=== PATIENT | female | born 2000 | race African-American/Black ===

== ENCOUNTER 2020-04-27 02:20 | Inpatient (IN) | payer OTHER ==
[~2020-04-27] VITALS: Ht 167.6 cm; Wt 110.0 kg
[2020-04-27 03:06] LABS: Urine Bacteria FEW /hpf (None Seen); Urine Blood 2+ /uL (Negative); Urine Specific Gravity 1.011 (1.001-1.035); Urine WBC 8 /hpf (0 - 5)
[2020-04-27 03:41] LABS: Basophils # (auto) 0 10 ^3/uL (0-0.2); Basophils % (auto) 0.3 % (0.0-2.0); Eosinophils # (auto) 0 10 ^3/uL (0-0.8); Eosinophils % (auto) 0.1 % (0.0-7.0); Hematocrit 40.6 % (36.0-46.0); Hemoglobin 12.3 g/dL (12.2-16.2); Lymphocytes # (auto) 0.7 10 ^3/uL (0.4-5.4); Lymphocytes % (auto) 5.9 % (10.0-50.0); Mean Corpuscular Hemoglobin 22.9 pg (28.0-32.0); Mean Corpuscular Hgb Conc. 30.4 g/dL (32.0-36.0); Mean Corpuscular Volume 75.3 fL (80.0-100.0); Monocytes # (auto) 0.7 10 ^3/uL (0-1.3); Neutrophils # (auto) 10.8 10 ^3/uL (1.6-8.6); Neutrophils % (auto) 87.7 % (37.0-80.0); Nucleated Red Blood Cells % 0.1 %; Platelet Count (auto) 506 10^3/uL (140-450); Red Blood Cells 5.39 10^6/uL (4.0-5.20); Red Cell Distribution Width 16.7 % (11.8-14.3); White Blood Cell 12.3 10^3/uL (4.4-10.8)
[2020-04-27 03:57] LABS: BUN/Creatinine Ratio 15.1; Calcium 8.9 mg/dL (8.5-10.1); Magnesium 2.2 mg/dL (1.6-2.6); Potassium 3.7 mmol/L (3.5-5.1)
[2020-04-27] MEDS ORDERED: SODIUM CHLORIDE 0.9% 1,000 ML IVB ONE (06:34)
[2020-04-27] MEDS ORDERED: HYDROmorphone HCL 2 MG/ML VL IV ONE (06:45)
[2020-04-27] MEDS ORDERED: cefTRIAXone 1GM/50ML D5W 50 ML IV ONE (06:45)
[2020-04-27] MEDS ORDERED: PROMETHAZINE HCL 25 MG/ML 1ML IV PRN ×2 (06:45→11:15)
[2020-04-27 09:12] LABS: Albumin 3.6 g/dL (3.4-5.0)
[2020-04-27 09:15] LABS: Bilirubin, Direct 2.6 mg/dL (0-0.2); Bilirubin, Total 3.4 mg/dL (0.2-1.0); Total Protein 8.4 g/dL (6.4-8.2)
[2020-04-27] MEDS ORDERED: HYDROmorphone HCL 2 MG/ML VL IV PRN ×2 (11:15→12:00)
[2020-04-27] MEDS: SODIUM CHLORIDE 0.9% 1,000 ML IV SCH ×2 (11:54→14:24)
--- NOTE | 2020-04-27 13:04 | NUR ---
MS admit from ER RODRIGOPORSHA RON admitted to tele/MS after SBAR received. Patient oriented to ROMA SINGH RN primary RN, unit, room, bed, and unit policies regarding patient care and visiting hours. Patient weighed by bedscale and encouraged to call if they need something. All questions and concerns addressed, patient verbalized understanding.
[2020-04-27] MEDS: metroNIDAZOLE 500MG/100ML 100 ML IV SCH ×2 (14:23→21:50)
[2020-04-27] MEDS: HYDROmorphone HCL 2 MG/ML VL IV PRN ×2 (16:22→22:04)
[2020-04-27 17:05] VITALS: BP 121/53
--- NOTE | 2020-04-27 17:25 | NUR ---
UPDATED MD PRIDE OVER TELEPHONE. ACCORDING TO MD PRIDE. KEEP PATIENT NPO STATUS AND HE WILL SEE THE PATIENT TOMORROW
--- NOTE | 2020-04-27 20:00 | NUR ---
Dr. Granger HPLC CHEMIST at bedside. No new orders at this time.
--- NOTE | 2020-04-27 20:00 | NUR ---
Opening Shift Note Assumed care of patient, awake and alert. No S/S of distress/SOB or pain. Instructed on POC and to call for assist PRN, will continue to monitor for changes Q1hr and PRN.
[2020-04-27] MEDS: FAMOTIDINE (10MG/ML) 2ML VL IV SCH (21:51)
[2020-04-27 22:00] VITALS: BP 133/67
[2020-04-28] MEDS: SODIUM CHLORIDE 0.9% 1,000 ML IV SCH ×4 (00:31→22:34)
[2020-04-28 05:00] VITALS: BP 132/81
[2020-04-28] MEDS: metroNIDAZOLE 500MG/100ML 100 ML IV SCH ×3 (06:11→22:34)
--- NOTE | 2020-04-28 06:55 | NUR ---
Patient up ambulating to BR. Denies pain, nausea and vomiting at this time.
[2020-04-28 07:04] LABS: Basophils # (auto) 0 10 ^3/uL (0-0.2); Eosinophils # (auto) 0.1 10 ^3/uL (0-0.8); Hemoglobin 10.8 g/dL (12.2-16.2); Mean Corpuscular Volume 74.8 fL (80.0-100.0); Monocytes # (auto) 0.5 10 ^3/uL (0-1.3); Neutrophils # (auto) 4.7 10 ^3/uL (1.6-8.6)
[2020-04-28 07:07] LABS: Basophils % (auto) 0.5 % (0.0-2.0); Eosinophils % (auto) 0.8 % (0.0-7.0); Hematocrit 34.8 % (36.0-46.0); Lymphocytes # (auto) 2.1 10 ^3/uL (0.4-5.4); Lymphocytes % (auto) 28.2 % (10.0-50.0); Mean Corpuscular Hemoglobin 23.2 pg (28.0-32.0); Monocytes % (auto) 7.4 % (0.0-12.0); Neutrophils % (auto) 63.1 % (37.0-80.0); Platelet Count (auto) 404 10^3/uL (140-450); Red Blood Cells 4.65 10^6/uL (4.0-5.20); Red Cell Distribution Width 16.3 % (11.8-14.3); White Blood Cell 7.4 10^3/uL (4.4-10.8)
[2020-04-28 07:26] LABS: Albumin 2.7 g/dL (3.4-5.0); BUN/Creatinine Ratio 16.9; Calcium 8.5 mg/dL (8.5-10.1)
[2020-04-28 07:28] LABS: Bilirubin, Total 0.6 mg/dL (0.2-1.0); Total Protein 7.2 g/dL (6.4-8.2)
[2020-04-28 08:36] VITALS: BP 133/77
[2020-04-28] MEDS: FAMOTIDINE (10MG/ML) 2ML VL IV SCH ×2 (09:31→22:35)
[2020-04-28] MEDS: cefTRIAXone 1GM/50ML D5W 50 ML IV SCH (09:31)
--- NOTE | 2020-04-28 10:22 | NUR ---
ROUNDING MD Brandon PORTILLO AT BEDSIDE. ALL QUESTIONS AND CONCERNS ADDRESSED AT THIS TIME.
[2020-04-28] MEDS: HYDROmorphone HCL 2 MG/ML VL IV PRN (11:08)
[2020-04-28 13:00] VITALS: BP 133/74
[2020-04-28 17:25] VITALS: BP 151/80
--- NOTE | 2020-04-28 20:43 | NUR ---
Pt resting quietly in bed. Denies complaints or concerns. Respirations unlabored. Skin warm and dry. Abdomen soft, nontender.
[2020-04-28 22:00] VITALS: BP 138/84
--- NOTE | 2020-04-28 22:41 | NUR ---
Medicated as ordered. Tolerated well. Site clear.
[2020-04-29] MEDS: SODIUM CHLORIDE 0.9% 1,000 ML IV SCH ×3 (03:39→19:12)
[2020-04-29 05:00] VITALS: BP 144/89
[2020-04-29] MEDS: metroNIDAZOLE 500MG/100ML 100 ML IV SCH ×3 (06:06→21:26)
--- NOTE | 2020-04-29 06:33 | NUR ---
Resting quietly in bed. Easily woken to voice. IV site clear and infusing. Respirations unlabored. Skin warm and dry. Linens and gown clean and dry. NAD. No changes to pt condition.
--- NOTE | 2020-04-29 07:40 | NUR ---
OPENING NOTE ASSUMED CARE OF PT. PT ALERT AND ORIENTED. NO S/S OF SOB/DISTRESS NOTED. BED SET TO LOWEST POSITION/LOCKED, BEDSIDE RAILS UP X2, CALL LIGHT WITHIN REACH. INSTRUCTED PT TO CALL FOR ASSISTANCE. UP DATED ON POC. PT VERBALIZED UNDERSTANDING. WILL CONTINUE TO MONITOR Q1HR AND PRN.
[2020-04-29 09:00] VITALS: BP 143/75
[2020-04-29] MEDS: cefTRIAXone 1GM/50ML D5W 50 ML IV SCH (10:00)
[2020-04-29] MEDS: FAMOTIDINE (10MG/ML) 2ML VL IV SCH ×2 (10:00→21:26)
[2020-04-29] MEDS ORDERED: HYDROcodone-ACET 5/325MG TAB PO PRN (10:00)
--- NOTE | 2020-04-29 11:51 | NUR ---
Nutrition Assessment Note: please see attached link for complete assessment [employer] needs ABW 85 [id number] kcals (20-23 kcal/kgBW). Est Protein needs: 85-93 gms/day (1.0-1.1 gm/kgBW). Will continue to monitor and reassess prn. Addendum: 04/29/20 at [address] Amended: Links added.
[2020-04-29 13:00] VITALS: BP 132/85
[2020-04-29 17:00] VITALS: BP 142/84
--- NOTE | 2020-04-29 19:24 | NUR ---
Opening Shift Note Assumed care of patient after receiving report from priya Montoya RN. Patient awake and alert with no S/S of distress/SOB or pain. Call light within reach, bed in lowest position x2 side rails. Instructed on POC and to call for assist PRN, will continue to monitor for changes Q1hr and PRN.
--- NOTE | 2020-04-29 22:00 | NUR ---
Pain management Patient stated pain was 4/10 in abdominal area. Patient stated tolerable pain level with no need for medication is around a 7/10. Patient was educated on pain management and was offered PRN [place] for current pain. Patient accepted pain medication and pain was relieved. Will continue to monitor.
--- NOTE | 2020-04-29 22:00 | NUR ---
Elevated BP BP was 156/88 with HR of 77. Patient had been experiencing pain and adjusting in bed. Patient had been given pain medication and BP was reassessed and read BP 149/86 and HR 69. Will continue to monitor.
[2020-04-29 23:02] VITALS: BP 156/88
[2020-04-29 23:50] VITALS: BP 149/86
[2020-04-30] MEDS: SODIUM CHLORIDE 0.9% 1,000 ML IV SCH ×3 (02:24→20:31)
[2020-04-30 05:30] VITALS: BP 139/78
[2020-04-30] MEDS: metroNIDAZOLE 500MG/100ML 100 ML IV SCH ×3 (05:31→20:41)
[2020-04-30 05:47] LABS: Basophils # (auto) 0 10 ^3/uL (0-0.2); Basophils % (auto) 0.6 % (0.0-2.0); Eosinophils # (auto) 0.1 10 ^3/uL (0-0.8); Hematocrit 33.6 % (36.0-46.0); Hemoglobin 10.8 g/dL (12.2-16.2); Lymphocytes # (auto) 2.4 10 ^3/uL (0.4-5.4); Lymphocytes % (auto) 31.7 % (10.0-50.0); Mean Corpuscular Hemoglobin 23.7 pg (28.0-32.0); Mean Corpuscular Hgb Conc. 32.2 g/dL (32.0-36.0); Mean Corpuscular Volume 73.7 fL (80.0-100.0); Monocytes # (auto) 0.6 10 ^3/uL (0-1.3); Monocytes % (auto) 8.7 % (0.0-12.0); Neutrophils # (auto) 4.2 10 ^3/uL (1.6-8.6); Platelet Count (auto) 392 10^3/uL (140-450); Red Blood Cells 4.56 10^6/uL (4.0-5.20); Red Cell Distribution Width 15.7 % (11.8-14.3); White Blood Cell 7.4 10^3/uL (4.4-10.8)
[2020-04-30 06:03] LABS: Potassium 3.8 mmol/L (3.5-5.1)
[2020-04-30 06:10] LABS: Albumin 2.8 g/dL (3.4-5.0); BUN/Creatinine Ratio 8.9; Bilirubin, Total 0.5 mg/dL (0.2-1.0); Calcium 8.1 mg/dL (8.5-10.1); Total Protein 7.1 g/dL (6.4-8.2)
[2020-04-30 08:00] VITALS: BP 128/71
[2020-04-30] MEDS: FAMOTIDINE (10MG/ML) 2ML VL IV SCH ×2 (09:30→20:41)
[2020-04-30] MEDS: cefTRIAXone 1GM/50ML D5W 50 ML IV SCH (09:30)
[2020-04-30 12:00] VITALS: BP 143/72
[2020-04-30 17:01] VITALS: BP 101/57
--- NOTE | 2020-04-30 19:08 | NUR ---
OPENING SHIFT NOTE: ASSUMED CARE OF PATIENT. PATIENT IS AWAKE, ALERT AND ORIENTED X 4. NO S/S OF SOB OR DISTRESS AND PATIENT DENIES PAIN. BED IS IN LOWEST LOCKED POSITION, TWO SIDE RAILS RAISED, AND CALL CHARLES WITHIN REACH. INSTRUCTED ON POC AND ENCOURAGED TO USE CALL LIGHT FOR ASSISTANCE, ALL QUESTIONS AND CONCERNS ADDRESS, PATIENT VERBALIZES UNDERSTANDING. WILL CONTINUE TO MONITOR Q1 HR AND PRN.
[2020-04-30 20:00] VITALS: BP 153/95
[2020-04-30 22:00] VITALS: BP 153/95
--- NOTE | 2020-05-01 02:27 | NUR ---
IV DISCONTINUED. RIGHT HAND 20 G IV DISCONTINUED, CATHETER TIP INTACT, PRESSURE DRESSING APPLIED. PATIENT TOLERATED WELL.
[2020-05-01 05:48] VITALS: BP 144/88
[2020-05-01] MEDS: metroNIDAZOLE 500MG/100ML 100 ML IV SCH (05:50)
[2020-05-01] MEDS: SODIUM CHLORIDE 0.9% 1,000 ML IV SCH (05:50)
[2020-05-01 06:01] LABS: Basophils # (auto) 0.1 10 ^3/uL (0-0.2); Hemoglobin 11.1 g/dL (12.2-16.2); Lymphocytes # (auto) 2.2 10 ^3/uL (0.4-5.4); Monocytes # (auto) 0.6 10 ^3/uL (0-1.3)
[2020-05-01 06:03] LABS: Eosinophils # (auto) 0.2 10 ^3/uL (0-0.8); Hematocrit 34.5 % (36.0-46.0); Lymphocytes % (auto) 28.7 % (10.0-50.0); Mean Corpuscular Hemoglobin 23.8 pg (28.0-32.0); Mean Corpuscular Hgb Conc. 32.2 g/dL (32.0-36.0); Mean Corpuscular Volume 73.9 fL (80.0-100.0); Monocytes % (auto) 7.5 % (0.0-12.0); Neutrophils # (auto) 4.6 10 ^3/uL (1.6-8.6); Neutrophils % (auto) 60.8 % (37.0-80.0); Nucleated Red Blood Cells % 0.1 %; Platelet Count (auto) 405 10^3/uL (140-450); Red Blood Cells 4.67 10^6/uL (4.0-5.20); Red Cell Distribution Width 15.6 % (11.8-14.3); White Blood Cell 7.6 10^3/uL (4.4-10.8)
[2020-05-01 06:21] LABS: Potassium 3.7 mmol/L (3.5-5.1)
[2020-05-01 06:29] LABS: Albumin 2.9 g/dL (3.4-5.0); BUN/Creatinine Ratio 8.1; Bilirubin, Total 0.5 mg/dL (0.2-1.0); Calcium 8.3 mg/dL (8.5-10.1); Total Protein 7.6 g/dL (6.4-8.2)
[2020-05-01 09:00] VITALS: BP 131/82
[2020-05-01] MEDS: FAMOTIDINE (10MG/ML) 2ML VL IV SCH (09:34)
[2020-05-01] MEDS: cefTRIAXone 1GM/50ML D5W 50 ML IV SCH (09:34)
[2020-05-01 11:29] VITALS: BP 131/82
--- NOTE | 2020-05-01 12:46 | NUR ---
Discharge Discharge instructions given as ordered. Encourage to follow up with PMD as instructed. All questions and concerns addressed. Patient verbalized understanding. IV removed with catheter intact, pressure dressing applied.
== END 2020-05-01 13:49 | disposition home or self-care (01) | DRG 282 ==
LOC: ER 02:20 → OVERFLOW 02:21 → CENTRAL 13:04
PROVIDERS: ADMIT Internal Medicine; ATTEND Internal Medicine
DX: K85.90 Acute pancreatitis without necrosis or infection, unspecified (principal); K80.00 Calculus of gallbladder with acute cholecystitis without obstruction; N80.9 Endometriosis, unspecified; E66.01 Morbid (severe) obesity due to excess calories; J45.909 Unspecified asthma, uncomplicated; N83.202 Unspecified ovarian cyst, left side; N83.201 Unspecified ovarian cyst, right side; D72.829 Elevated white blood cell count, unspecified; F12.90 Cannabis use, unspecified, uncomplicated; Z68.39 Body mass index [BMI] 39.0-39.9, adult; Z79.899 Other long term (current) drug therapy; Z82.49 Family history of ischemic heart disease and other diseases of the circulatory system; Z83.3 Family history of diabetes mellitus; N39.0 Urinary tract infection, site not specified
CPT/HCPCS: 36415; 71046; 74176; 74181; 76705; 76856; 80048; 80053; 80061; 80076; 81001; 82150; 83690; 83735; 84702; 85025; 87086; 93005; G0378; J0696; J3490

== ENCOUNTER 2020-06-11 22:21 | Emergency (ER) | payer MEDICAID, OTHER ==
[~2020-06-11] VITALS: Ht 167.6 cm; Wt 111.1 kg
[2020-06-11 22:26] VITALS: BP 140/85
[2020-06-11 23:32] LABS: Basophils # (auto) 0.1 10 ^3/uL (0-0.2); Eosinophils # (auto) 0.1 10 ^3/uL (0-0.8); Eosinophils % (auto) 0.6 % (0.0-7.0); Lymphocytes % (auto) 10.8 % (10.0-50.0); Neutrophils % (auto) 83.7 % (37.0-80.0)
[2020-06-11 23:33] LABS: Basophils % (auto) 0.4 % (0.0-2.0); Lymphocytes # (auto) 1.6 10 ^3/uL (0.4-5.4); Mean Corpuscular Hemoglobin 22.7 pg (28.0-32.0); Mean Corpuscular Hgb Conc. 30.5 g/dL (32.0-36.0); Mean Corpuscular Volume 74.5 fL (80.0-100.0); Monocytes # (auto) 0.7 10 ^3/uL (0-1.3); Monocytes % (auto) 4.5 % (0.0-12.0); Neutrophils # (auto) 12.1 10 ^3/uL (1.6-8.6); Platelet Count (auto) 478 10^3/uL (140-450); Red Blood Cells 4.83 10^6/uL (4.0-5.20); White Blood Cell 14.5 10^3/uL (4.4-10.8)
[2020-06-11 23:38] LABS: Urine Bacteria FEW /hpf (None Seen); Urine Blood 2+ /uL (Negative); Urine Mucus FEW (None Seen); Urine Specific Gravity 1.028 (1.001-1.035); Urine WBC 3 /hpf (0 - 5)
[2020-06-11 23:49] LABS: Albumin 3.1 g/dL (3.4-5.0); Calcium 8.9 mg/dL (8.5-10.1); Potassium 3.8 mmol/L (3.5-5.1)
[2020-06-11 23:55] LABS: Lactic Acid w/Reflex 2.5 mmol/L (0.4-2.0)
[2020-06-11 23:59] LABS: Bilirubin, Total 0.3 mg/dL (0.2-1.0); Total Protein 7.8 g/dL (6.4-8.2)
[2020-06-12] MEDS ORDERED: cefTRIAXone SOD 1,000 MG VL IM ONE (00:45)
[2020-06-12] MEDS ORDERED: SODIUM CHLORIDE 0.9% 1,000 ML IV ONE (00:45)
[2020-06-12] MEDS ORDERED: HYDROcodone-ACET 5/325MG TAB PO ONE (03:45)
== END 2020-06-12 04:07 | disposition home or self-care (01) ==
LOC: ER 22:21
DX: N39.0 Urinary tract infection, site not specified (principal); J45.909 Unspecified asthma, uncomplicated
CPT/HCPCS: 36415; 74176; 80053; 81001; 82150; 83605; 83690; 85025; 87040; 87086; 96372; J0696

== ENCOUNTER 2021-12-20 15:33 | Emergency (ER) | payer MEDICAID ==
[~2021-12-20] VITALS: Ht 167.6 cm; Wt 106.6 kg
[2021-12-20 16:08] VITALS: BP 151/89
[2021-12-20] MEDS ORDERED: ALPRAZolam 0.5 MG TAB PO ONE (16:15)
[2021-12-20 16:33] LABS: Urine Bacteria FEW /hpf (None Seen); Urine Blood 3+ /uL (Negative); Urine Mucus FEW (None Seen); Urine Specific Gravity 1.025 (1.001-1.035); Urine WBC 26 /hpf (0 - 5)
[2021-12-20] MEDS ORDERED: cefTRIAXone SOD 1,000 MG VL IM ONE (16:45)
[2021-12-20] MEDS ORDERED: CIPR-173 PO (17:11)
[2021-12-20] MEDS ORDERED: PHEN200T16 PO (17:11)
== END 2021-12-20 17:35 | disposition home or self-care (01) ==
LOC: ER 15:35
DX: N39.0 Urinary tract infection, site not specified (principal); F41.8 Other specified anxiety disorders; J45.909 Unspecified asthma, uncomplicated; Z90.49 Acquired absence of other specified parts of digestive tract
CPT/HCPCS: 81001; 81025; 96372; 99283; J0696